=== PATIENT | male | born 1940 | race Caucasian/White ===

== ENCOUNTER → 2019-11-13 09:59 | Outpatient (BNVA) | payer MEDICARE, BC, SELFPAY | PROVIDERS: Family Provider Family Medicine; PCP Family Medicine; Visit Provider Specialist | DX: R25.1 Tremor, unspecified (principal); Z87.891 Personal history of nicotine dependence | CPT/HCPCS: 99214 ==

== ENCOUNTER 2019-11-13 11:55 | Outpatient (CLI) | payer MEDICARE, BC, SELFPAY ==
[2019-11-13 15:45] LABS: Vitamin B12 1203 pg/mL (232-1245)
[2019-11-13 16:06] LABS: Erythrocyte Sedimentation Rate 9 mm/hr (0-10)
[2019-11-13 16:52] LABS: Folate Level > 20.0 ng/mL (4.5-32.2)
[2019-11-17 05:57] LABS: Methylmalonic Acid 195 nmol/L (87-318)
== END 2019-11-13 11:56 | disposition home or self-care (01) ==
LOC: LAB 11:55
PROVIDERS: Family Provider Family Medicine; PCP Family Medicine; Visit Provider Specialist
DX: R20.0 Anesthesia of skin (principal)
CPT/HCPCS: 82607; 82746; 83921; 84260; 85651

== ENCOUNTER → 2020-11-20 12:01 | Outpatient (BNVA) | payer MEDICARE, BC, SELFPAY | PROVIDERS: Family Provider Family Medicine; PCP Family Medicine; Visit Provider Specialist | DX: G25.0 Essential tremor (principal); I25.5 Ischemic cardiomyopathy; Z87.891 Personal history of nicotine dependence | CPT/HCPCS: 99214 ==

== ENCOUNTER → 2021-12-08 10:40 | Outpatient (BNVA) | payer MEDICARE, BC, SELFPAY | PROVIDERS: Family Provider Family Medicine; PCP Family Medicine; Visit Provider Specialist | DX: G25.0 Essential tremor (principal); I95.1 Orthostatic hypotension; Z87.891 Personal history of nicotine dependence | CPT/HCPCS: 99214 ==

== ENCOUNTER → 2022-01-16 12:04 | Outpatient (BNVA) | payer MEDICARE, SELFPAY | PROVIDERS: Family Provider Family Medicine; PCP Family Medicine; Visit Provider Internal Medicine Cardiovascular Disease | DX: Z45.02 Encounter for adjustment and management of automatic implantable cardiac defibrillator (principal) | CPT/HCPCS: 93284 ==

== ENCOUNTER → 2022-07-06 14:07 | Outpatient (BNVA) | payer MEDICARE, BC, SELFPAY | PROVIDERS: Family Provider Family Medicine; PCP Family Medicine; Visit Provider Nurse Practitioner Family | DX: R42 Dizziness and giddiness (principal); Z95.810 Presence of automatic (implantable) cardiac defibrillator | CPT/HCPCS: 36415; 80162; 93284; 99214 ==

== ENCOUNTER 2022-08-27 12:07 | Outpatient (CLI) | payer MEDICARE, BC, SELFPAY ==
--- NOTE | 2022-08-27 12:45 | USCV_ITS ---
[place] Age: 82 Gender: M : 1940 Exam Date: 08/27/2022 12:29 Ordering Phys: Cara Sanchez Technologist: ALINE Exam Location: [facility] – [place] Indication: DIZZINESS AND FALL Risk Factors: Previous Vascular Surgery: Right Brachial BP: / Left Brachial BP: / Right Left Velocity (cm/s) Spectral Plaque Velocity (cm/s) Spectral Plaque Syst/Diast Broadening Syst/Diast Broadening 112.50/19.80 Prox CCA 135.80/ 29.60 97.40/ 15.40 Mid CCA 104.70/ 25.40 84.60/ 17.90 Distal CCA 83.90 / 19.40 84.80/ 24.10 Prox ICA 55.20 / 11.70 76.30/ 20.30 Mid ICA 93.10 / 23.30 102.40/30.30 Distal ICA 90.40 / 23.30 110.20 ECA 100.20 0.91 ICA/CCA 0.69 Antegrade Vertebral Antegrade 42.70/ 7.70 cm/s 41.90/ 13.20 cm/s Tri Subclavian Tri 144.5 118.3 0 0 CONCLUSIONS Right ICA stenosis <50%. Mild atheromatous plaque right carotid bulb/ICA. Left ICA stenosis <50%. Mild atheromatous plaque left carotid bulb/ICA. Normal antegrade Doppler flow noted in the right vertebral artery. Normal antegrade Doppler flow noted in the left vertebral artery. Joel Louise MD (Electronically Signed) Final Date: 27 August 2022 14:34 S
== END 2022-08-27 12:08 | disposition home or self-care (01) ==
LOC: RAD 12:07
PROVIDERS: PCP Family Medicine; Visit Provider Nurse Practitioner Family
DX: I25.5 Ischemic cardiomyopathy (principal); R42 Dizziness and giddiness; W19.XXXA Unspecified fall, initial encounter; I65.23 Occlusion and stenosis of bilateral carotid arteries
CPT/HCPCS: 93880

== ENCOUNTER → 2022-11-10 13:58 | Outpatient (BNVA) | payer MEDICARE, BC, SELFPAY | PROVIDERS: PCP Family Medicine; Visit Provider Internal Medicine Cardiovascular Disease | DX: Z45.02 Encounter for adjustment and management of automatic implantable cardiac defibrillator (principal) | CPT/HCPCS: 93296 ==

== ENCOUNTER → 2022-12-08 11:06 | Outpatient (BNVA) | payer MEDICARE, BC, SELFPAY | PROVIDERS: PCP Family Medicine; Visit Provider Specialist | DX: G25.0 Essential tremor (principal); I25.5 Ischemic cardiomyopathy; R42 Dizziness and giddiness; Z95.810 Presence of automatic (implantable) cardiac defibrillator; G47.33 Obstructive sleep apnea (adult) (pediatric); G61.0 Guillain-Barre syndrome; Z79.01 Long term (current) use of anticoagulants | CPT/HCPCS: 82607; 82746; 99213 ==

== ENCOUNTER → 2023-04-05 12:24 | Outpatient (BNVA) | payer MEDICARE, BC, SELFPAY | PROVIDERS: PCP Family Medicine; Visit Provider Internal Medicine Cardiovascular Disease | DX: I25.5 Ischemic cardiomyopathy (principal); R42 Dizziness and giddiness; G61.0 Guillain-Barre syndrome; Z95.810 Presence of automatic (implantable) cardiac defibrillator; G25.0 Essential tremor; I48.20 Chronic atrial fibrillation, unspecified; I25.10 Atherosclerotic heart disease of native coronary artery without angina pectoris; Z79.01 Long term (current) use of anticoagulants; Z79.82 Long term (current) use of aspirin; I10 Essential (primary) hypertension; Z87.891 Personal history of nicotine dependence | CPT/HCPCS: 99214 ==

== ENCOUNTER 2023-04-21 06:37 | Outpatient (CLI) | payer MEDICARE, BC, SELFPAY ==
--- NOTE | 2023-04-21 07:15 | USCV_ITS ---
[place] Age: 83 Gender: M : 1940 Exam Date: 04/21/2023 07:27 Ordering Phys: Camron Muir MD ([email or web address]) Technologist: Darryl Mota [place] [facility] [place]: sob BP: 110 / 62 HR: 70 Rhythm: Sinus Technical Quality: Adequate MEASUREMENTS (Male / Female) Normal Values 2D ECHO LVOT Diameter 2.0 cm LV Ejection Fraction MOD 2C 60.0 % LV Ejection Fraction 2C AL 63.0 % LA Diameter 4.6 cm LA Width 4.9 cm LA Height 7.3 cm RA Width 5.8 cm RA Height 6.7 cm Aorta at Sinotubular Diameter 3.4 cm IVC Diameter 2.4 cm M-MODE Aortic Annulus Diameter 3.0 cm LA Ao Ratio MM 1.5 MV E Point Septal Separation 0.4 cm DOPPLER AV Peak Velocity 150.3 cm/s LVOT Peak Velocity 79.0 cm/s AV Area Cont Eq vti 1.6 cm squared AV Area Cont Eq pk 1.7 cm squared MV Peak Velocity 136.0 cm/s MV Area PHT 7.1 cm squared Mitral E to A Ratio 4.2 MV E' Velocity 54.0 cm/s Mitral E to MV E' Ratio 7.5 Mitral E to LV E' Lateral Ratio 6.8 Mitral E to LV E' Septal Ratio 8.4 TR Peak Velocity 288.1 cm/s TR Peak Gradient 33.2 mmHg TR Mean Velocity 215.5 cm/s TR Mean Gradient 21.1 mmHg TR Velocity Time Integral 81.3 cm Right Atrial Pressure 8.0 mmHg Pulmonary Artery Systolic Pressu 41.2 mmHg PV Peak Velocity 95.7 cm/s RV Acceleration Time 0.1 s RV Ejection Time 0.3 s RV AcT/ET 0.3 FINDINGS Left Ventricle Left ventricle is normal in size. LV systolic function is normal with EF of 55 to 60%. No regional wall motion abnormalities are seen. Right Ventricle Normal in size and function Right Atrium Dilated. Pacemaker lead is seen Left Atrium Dilated Mitral Valve Structurally normal mitral valve. Moderate mitral regurgitation Aortic Valve Aortic valve is thickened. Mild aortic regurgitation. Tricuspid Valve Mild tricuspid regurgitation. RVSP is 40 to 45 mmHg. This is consistent with mild pulmonary hypertension. Pulmonic Valve Mild pulmonic regurgitation Pericardium Normal Aorta Normal in size IVC Dilated CONCLUSIONS LV systolic function is normal with EF 55 to 60%. Biatrial enlargement. Moderate mitral regurgitation. Mild aortic regurgitation Mild tricuspid regurgitation. Mild pulmonary hypertension IVC is dilated. Compared to prior echocardiogram from 2019, patient now has moderate mitral regurgitation and mild aortic regurgitation. Joe Bazzi MD (Electronically Signed) Final Date: 29 April 2023 16:57 S
== END 2023-04-21 06:38 | disposition home or self-care (01) ==
PROVIDERS: PCP Family Medicine; Visit Provider Internal Medicine Cardiovascular Disease
DX: R06.02 Shortness of breath (principal); I34.0 Nonrheumatic mitral (valve) insufficiency; I35.1 Nonrheumatic aortic (valve) insufficiency; I07.1 Rheumatic tricuspid insufficiency; I27.20 Pulmonary hypertension, unspecified
CPT/HCPCS: 93306

== ENCOUNTER → 2023-06-03 11:15 | Outpatient (BNVA) | payer MEDICARE, BC, SELFPAY | PROVIDERS: PCP Family Medicine; Visit Provider Internal Medicine Cardiovascular Disease | DX: I48.20 Chronic atrial fibrillation, unspecified (principal); I25.10 Atherosclerotic heart disease of native coronary artery without angina pectoris; Z95.810 Presence of automatic (implantable) cardiac defibrillator; R06.02 Shortness of breath; I25.5 Ischemic cardiomyopathy; G47.33 Obstructive sleep apnea (adult) (pediatric); G25.0 Essential tremor; Z87.891 Personal history of nicotine dependence; I11.0 Hypertensive heart disease with heart failure; I50.20 Unspecified systolic (congestive) heart failure | CPT/HCPCS: 36415; 80048; 83880; 99214 ==

== ENCOUNTER → 2023-12-08 09:36 | Outpatient (BNVA) | payer MEDICARE, BC, SELFPAY | PROVIDERS: PCP Family Medicine; Visit Provider Specialist | DX: G25.0 Essential tremor (principal); R26.9 Unspecified abnormalities of gait and mobility; I95.1 Orthostatic hypotension; G61.0 Guillain-Barre syndrome; I25.5 Ischemic cardiomyopathy; Z95.810 Presence of automatic (implantable) cardiac defibrillator | CPT/HCPCS: 99214 ==

== ENCOUNTER → 2023-12-16 09:56 | Outpatient (BNVA) | payer MEDICARE, BC, SELFPAY | PROVIDERS: PCP Family Medicine; Visit Provider Internal Medicine Cardiovascular Disease | DX: I25.10 Atherosclerotic heart disease of native coronary artery without angina pectoris (principal); Z95.810 Presence of automatic (implantable) cardiac defibrillator; I25.5 Ischemic cardiomyopathy; I48.20 Chronic atrial fibrillation, unspecified; G61.0 Guillain-Barre syndrome; I95.1 Orthostatic hypotension; Z87.891 Personal history of nicotine dependence; Z79.01 Long term (current) use of anticoagulants | CPT/HCPCS: 99214 ==

== ENCOUNTER → 2024-06-19 11:07 | Outpatient (BNVA) | payer MEDICARE, BC, SELFPAY | PROVIDERS: PCP Family Medicine; Visit Provider Internal Medicine Cardiovascular Disease | DX: R07.9 Chest pain, unspecified (principal) | CPT/HCPCS: 93005; 99214 ==

== ENCOUNTER 2024-09-07 10:55 | Outpatient (CLI) | payer MEDICARE, BC, SELFPAY | END 2024-09-07 10:56 | disposition home or self-care (01) | LOC: SLEEP 10:56 | PROVIDERS: PCP Family Medicine; Visit Provider Student in an Organized Health Care Education/Training Program | DX: G47.33 Obstructive sleep apnea (adult) (pediatric) (principal) | CPT/HCPCS: 94762 ==

== ENCOUNTER → 2024-12-06 09:59 | Outpatient (BNVA) | payer MEDICARE, BC, SELFPAY | PROVIDERS: PCP Family Medicine; Visit Provider Specialist | DX: G31.84 Mild cognitive impairment of uncertain or unknown etiology (principal); R26.9 Unspecified abnormalities of gait and mobility; I95.1 Orthostatic hypotension; G25.0 Essential tremor; G61.0 Guillain-Barre syndrome; I25.5 Ischemic cardiomyopathy; Z95.810 Presence of automatic (implantable) cardiac defibrillator | CPT/HCPCS: 99214 ==

== ENCOUNTER → 2024-12-19 11:42 | Outpatient (BNVA) | payer MEDICARE, BC, SELFPAY | PROVIDERS: PCP Family Medicine; Visit Provider Internal Medicine Cardiovascular Disease | DX: I25.5 Ischemic cardiomyopathy (principal); Z95.810 Presence of automatic (implantable) cardiac defibrillator; I25.10 Atherosclerotic heart disease of native coronary artery without angina pectoris; I48.20 Chronic atrial fibrillation, unspecified; I95.1 Orthostatic hypotension | CPT/HCPCS: 99214 ==

== ENCOUNTER → 2025-01-24 12:21 | Outpatient (BNVA) | payer MEDICARE, BC, SELFPAY | PROVIDERS: PCP Family Medicine; Visit Provider Internal Medicine Cardiovascular Disease | DX: Z45.02 Encounter for adjustment and management of automatic implantable cardiac defibrillator (principal) | CPT/HCPCS: 93296 ==

== ENCOUNTER → 2025-08-14 11:13 | Outpatient (BNVA) | payer MEDICARE, SELFPAY | PROVIDERS: PCP Family Medicine; Visit Provider Nurse Practitioner Family | DX: R42 Dizziness and giddiness (principal); Z95.810 Presence of automatic (implantable) cardiac defibrillator; I25.10 Atherosclerotic heart disease of native coronary artery without angina pectoris; Z87.891 Personal history of nicotine dependence; Z79.01 Long term (current) use of anticoagulants | CPT/HCPCS: 36415; 83880; 99213 ==